=== PATIENT | male | born 1990 | race Caucasian/White ===

== ENCOUNTER 2017-04-29 20:10 | Emergency (ER) | payer BC ==
--- NOTE | 2017-04-29 20:52 | RAD ---
TWO VIEWS OF THE CHEST: History: Cough, fever. Comparison: None. FINDINGS: Two views of the chest show normal sized cardiomediastinal silhouette. There is no evidence of consol idation, mass, or pleural effusion. The bones are unremarkable. IMPRESSION: No evidence of acute cardiopulmonary disease. POS: [facility]
[2017-04-29] MEDS ORDERED: Ibuprofen 800 MG TAB ONE (21:22)
[2017-04-29] MEDS ORDERED: AMOXicillin 250 MG CAP ONE (21:22)
== END 2017-04-29 21:29 | disposition home or self-care (01) ==
LOC: NAV ERS 20:10
DX: B34.9 Viral infection, unspecified (principal); H66.92 Otitis media, unspecified, left ear; I10 Essential (primary) hypertension; J45.909 Unspecified asthma, uncomplicated; F41.9 Anxiety disorder, unspecified; F17.210 Nicotine dependence, cigarettes, uncomplicated
CPT/HCPCS: 71046